=== PATIENT | male | born 1980 | race Caucasian/White ===

== ENCOUNTER 2019-03-29 13:37 | Emergency (ER) | payer SELFPAY ==
[2019-03-29 14:19] VITALS: BP 134/86; PULSE 96; RESP 18; TEMP 36.7; O2SAT 97; BMI 18.6
--- NOTE | 2019-03-29 14:36 | ED_ITS ---
HPI - Dental/Oral General: Chief complaint: Dental/Oral Stated complaint: toothache Time Seen by Provider: 03/29/19 14:31 History of Present Illness: HPI Narrative: Patient comes in seeking pain medicine for dental problems. Had a long history of dental problems MD Complaint: tooth pain (Complains of gum pain along the right side.) Location: Tooth # Teeth map: 1. 2. 3. Onset (ago): week(s) Duration: intermittent Severity: moderate Relieving factors: nothing Context: history of dental caries Associated symptoms: Denies fever(s) Review of Systems Const: Denies: fever, chills or body aches Eyes: Denies: change in vision or blurry vision ENMT: Reports: other (Dental gum pain times weeks); Denies: throat pain or nasal congestion Card: Denies: chest pain or shortness of breath on exertion Resp: Denies: shortness of breath, productive cough or non-productive cough GI: Denies: abdominal pain, nausea or vomiting : Denies: difficulty urinating Musc: Denies: extremity pain Skin/Breast: Denies: rash Neuro: Denies: headache Psych: Denies: anxiety or depression Sly/Lymph: Denies: easy bruising PFSH ED PFSH: Statuses (acute, chronic, etc) shown below reflect problem list status as previously entered and may not be historically accurate Social History Smoking and tobacco status: current every day smoker Physical Exam Const: COMMON NORMALS: no apparent distress, average body habitus and oriented x3 HENMT: COMMON NORMALS: normocephalic HEAD & SCALP: normal to inspection and normocephalic FACE & SINUS: normal facial exam MOUTH: other (Obvious gum disease no signs of abscess no swelling erythema to the face or in the jaws no lymphadenopathy.) Eye: COMMON NORMALS: conjunctivae normal GENERAL EYE: normal appearance of both eyes CONJUNCTIVA: Yes conjunctivae normal Neck/C-Spine: COMMON NORMALS: no JVD Chest: COMMONS NORMALS: inspection of chest normal Resp: COMMON NORMALS: normal respiratory effort and clear to auscultation bilaterally AUSCULTATION: clear to auscultation bilaterally Cardio: COMMON NORMALS: no JVD, regular rate and regular rhythm RATE: regular rate RHYTHM: regular rhythm GI: COMMON NORMALS: normal to inspection, nondistended, normoactive bowel sounds Extremity: COMMON NORMALS: normal to inspection and full ROM Neuro: COMMON NORMALS: oriented x3 Course Vital Signs: Vital signs: Vital Signs Temperature 98.1 F 03/29/19 14:19 Pulse Rate 96 03/29/19 14:19 Respiratory Rate 18 03/29/19 14:19 Blood Pressure 134/86 03/29/19 14:19 Pulse Oximetry 97 03/29/19 14:19 Coding Level of Care Code 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
[2019-03-29 14:47] VITALS: BP 135/83; PULSE 88; RESP 18; O2SAT 97
== END 2019-03-29 14:46 | disposition home or self-care (01) ==
LOC: ER 14:51
PROVIDERS: Emergency Provider Nurse Practitioner Family
DX: K08.89 Other specified disorders of teeth and supporting structures (principal); F17.210 Nicotine dependence, cigarettes, uncomplicated
CPT/HCPCS: 99281

== ENCOUNTER 2020-05-06 16:19 | Emergency (ER) | payer SELFPAY ==
[2020-05-06 16:50] VITALS: BP 122/71; PULSE 78; RESP 14; TEMP 36.7; O2SAT 96; BMI 23.1
[2020-05-06 17:50] VITALS: BP 117/77; PULSE 80; RESP 18; O2SAT 98
[2020-05-06] MEDS: sodium chloride 0.9% 1,000 ML 999 ML IV (18:04)
[2020-05-06] MEDS: ondansetron 2 mg/ML SDV 2 mL 4 MG IVP (18:04)
[2020-05-06] MEDS: morphine 4 mg/mL SDV 1 mL IVP ×2 (18:04→19:26)
[2020-05-06 18:12] LABS: Basophils # 0.1 10^3/uL (0.0-0.1); Basophils % 1.2 %; Eosinophils # 0.4 10^3/uL (0.0-0.8); Eosinophils % 4.9 %; Hematocrit 47.5 % (42.0-52.0); Hemoglobin 15.4 g/dL (11.7-16.6); Lymphocytes # 2.1 10^3/uL (0.8-4.8); Lymphocytes % 26.2 %; Mean Corpuscular HGB Conc 32.4 g/dL (30.0-36.0); Mean Corpuscular Hemoglobin 32.4 pg (28.0-34.0); Mean Corpuscular Volume 99.8 fL (80-94); Mean Platelet Volume 11.5 fL (7.4-10.4); Monocytes # 0.5 10^3/uL (0.2-0.9); Monocytes % 6.5 %; Neutrophils # 4.97 10^3/uL (1.8-7.7); Nucleated Red Blood Cells % 0 %; Platelet Count 183 10^3/cmm (130-400); Red Blood Count 4.76 10^6/uL (4.1-5.3); Red Cell Distribution Width 12.5 % (12.1-15.1); White Blood Count 8.2 10^3/uL (4.0-10.0)
--- NOTE | 2020-05-06 18:15 | ED_ITS ---
HPI - Male Genitourinary General: Chief complaint: Urogenital-Male Stated complaint: Kidney Pain Time Seen by Provider: 05/06/20 17:29 Source: patient Mode of arrival: ambulatory Limitations: no limitations History of Present Illness: HPI Narrative: 39-year-old male states has been having dysuria some slight flank pain over the last 3 to 4 days. He states that it is a very severe burning sensation when he urinates. He denies any blood or discharge. He denies any pain except for when he urinates. Denies any vomiting or diarrhea. Associated symptoms: Reports dysuria; Deny nausea or vomiting Review of Systems Const: Denies: fever(s), chills, body aches or change in appetite Eyes: Denies: blurry vision or eye discomfort ENMT: Denies: throat pain or dental pain Card: Denies: chest pain Resp: Denies: dyspnea GI: Denies: abdominal pain, nausea, vomiting or diarrhea : Reports: dysuria, urinary frequency and urinary urgency Musc: Denies: neck pain or back pain Skin/Breast: Denies: rash Neuro: Denies: headache(s) Psych: Denies: depression Sly/Lymph: Denies: easy bruising All/Imm: Denies: urticaria PFSH ED PFSH: Social History Smoking and tobacco status: current every day smoker Physical Exam Const: COMMON NORMALS: no acute distress, patient oriented x3 and healthy appearing HENMT: COMMON NORMALS: normocephalic and atraumatic HEAD & SCALP: normocephalic and atraumatic Eye: COMMON NORMALS: Equal, round and reactive pupils present and EOMs intact bilaterally PUPIL: Yes Equal, round and reactive pupils present Neck/C-Spine: COMMON NORMALS: full ROM and supple Chest: COMMONS NORMALS: normal inspection of the chest and normal palpation of entire chest wall Resp: COMMON NORMALS: normal respiratory effort, No retractions, No use of accessory muscles and clear to auscultation bilaterally AUSCULTATION: clear to auscultation bilaterally Cardio: COMMON NORMALS: regular rate, regular rhythm and No murmurs present (Cardio) RATE: regular rate RHYTHM: regular rhythm GI: COMMON NORMALS: Normal to inspection, nondistended, normoactive bowel sounds present, Soft to palpation, non-tender and no masses PALPATION: Yes Soft to palpation Extremity: COMMON NORMALS: normal to inspection and full ROM Neuro: COMMON NORMALS: patient oriented x3, moves all extremities and no focal motor deficits Psych: COMMON NORMALS: mental status grossly normal, Normal thought process present and cooperative THOUGHT PROCESS: Normal thought process present Skin: COMMON NORMALS: no rashes or lesions noted and no wounds GENERAL SKIN EXAM: no rashes or lesions noted Course Vital Signs: Vital signs: Vital Signs Temperature 98.1 F 05/06/20 16:50 Pulse Rate 68 05/06/20 19:29 Respiratory Rate 16 05/06/20 19:29 Blood Pressure 122/80 05/06/20 19:29 Pulse Oximetry 98 05/06/20 19:29 MDM - Male MDM Narrative: Medical decision making narrative: Patient presents here with acute cystitis. CT scan and blood work here are all normal. Will place patient on Keflex and Naprosyn. His exam at discharge is benign. He is stable for discharge and he is to return if worsening. Lab Data: Labs: Lab Results 05/06/20 05/06/20 05/06/20 Range/Units 17:30 17:30 18:42 WBC 8.2 (4.0-10.0) 10^3/ uL RBC 4.76 (4.1-5.3) 10^6/u L Hgb 15.4 (11.7-16.6) g/dL Hct 47.5 (42.0-52.0) % MCV 99.8 H (80-94) fL MCH 32.4 (28.0-34.0) pg MCHC 32.4 (30.0-36.0) g/dL RDW 12.5 (12.1-15.1) % Plt Count 183 (130-400) 10^3/c mm MPV 11.5 H (7.4-10.4) fL Neut % (Auto) 61.0 % Lymph % (Auto) 26.2 % [place] % (Auto) 6.5 % Eos % (Auto) 4.9 % Baso % (Auto) 1.2 % Neut # (Auto) 4.97 (1.8-7.7) 10^3/u L Lymph # (Auto) 2.1 (0.8-4.8) 10^3/u L [place] # (Auto) 0.5 (0.2-0.9) 10^3/u L Eos # (Auto) 0.4 (0.0-0.8) 10^3/u L Baso # (Auto) 0.1 (0.0-0.1) 10^3/u L Nucleated RBC % (a uto) 0 % Nucleated RBCs # 0.0 /100WBC Sodium 143 (136-145) mmol/L Potassium 4.2 (3.5-5.1) mmol/L Chloride 104 (98-107) mmol/L Carbon Dioxide 30 H (22-29) mmol/L Anion Gap 13.2 (5-19) BUN 14 (6-20) mg/dL Creatinine 0.7 (0.7-1.2) mg/dL GFR Calculation 124.3 (90-130) mL/min Glucose 93 (65-115) mg/dL Calculated Osmolal ity 296 H (285-295) mOsm/k g Calcium 9.3 (8.5-10.5) mg/dL Total Bilirubin 0.2 (0.15-1.2) mg/dL AST 13 (0-40) U/L ALT 13 (0-41) U/L Alkaline Phosphata se 81 (40-130) IU/L Total Protein 6.6 (6.6-8.7) g/dL Albumin 3.9 (3.5-5.2) g/dL Globulin 2.7 (1.3-4.6) g/dL Lipase 31 (13-60) U/L Urine Color Yellow (Yellow) Urine Appearance Clear (CLEAR) Urine pH 5 (5-7) Ur Specific Gravit y 1.030 (1.005-1.030) Urine Protein Trace (Negative) Urine Glucose (UA) Norm (Normal) Urine Ketones 1+ H (Negative) Urine Blood Neg (Negative) Urine Nitrate Negative (Negative) Urine Bilirubin 2+ H (Negative) Urine Urobilinogen 4+ H (Negative) mg/dL Ur Leukocyte Linette ase Trace H (Negative) Urine RBC None (0-2) /hpf Urine WBC 0-4 H (0-5) /hpf Ur Squamous Epith Cells None (0-5) /hpf Amorphous Sediment Not Reportable Urine Bacteria None (NONE) /hpf Urine Mucus 1+ /hpf Imaging Data: CT Abd/Pel: Attestation: I personally reviewed and interpreted this imaging study as follows: Radiologist's impression: [facility] [address] [place] [address] CT Scan Report Signed Patient: Demian Lucio Unit #: [id number] : 1980 Age/Sex: 39 / M ADM Date: 05/06/20 Loc: ER Room/Bed: Attending Dr: Ordering Provider/Ordering MD: Elisabet Mora MD Date of Service: 05/06/20 Procedure(s): CT abdomen pelvis w con* [id number] Accession Number(s): [id number] Report Number: [id number] PROCEDURE INFORMATION: Exam: CT Abdomen And Pelvis With Contrast Exam date and time: 05/06/2020 7:26 PM Age: 39 years old Clinical indication: Abdominal pain; Other: Bilat; Prior surgery; Surgery date: 6+ months; Surgery type: Fistula; Patient HX: C/O b flank pain and dark urine x 3-4 days; Additional info: Abd pain TECHNIQUE: Imaging protocol: Computed tomography of the abdomen and pelvis with contrast. Radiation optimization: All CT scans at this facility use at least one of these dose optimization techniques: automated exposure control; mA and/or kV adjustment per patient size (includes targeted exams where dose is matched to clinical indication); or iterative reconstruction. Contrast material: OMNI 300; Contrast volume: 95 ml; Contrast route: INTRAVENOUS (IV); COMPARISON: No relevant prior studies available. RADIATION DOSE METRICS: Total DLP (mGy-cm): 1208.6 FINDINGS: Liver: Normal. No mass. Gallbladder and bile ducts: Normal. No calcified stones. No ductal dilation. Pancreas: Normal. No ductal dilation. Spleen: Normal. No splenomegaly. Adrenal glands: Normal. No mass. Kidneys and ureters: Incidental cyst with simple CT features 9 mm diameter in the posterior lower pole cortex of the left kidney. Renal parenchymal enhancement is symmetric and unremarkable. No hydronephrosis. No perinephric inflammation. No calcified renal stones. Stomach and bowel: Unremarkable. No obstruction. No mucosal thickening. Appendix: No evidence of appendicitis. Intraperitoneal space: Unremarkable. No free air. No significant fluid collection. Vasculature: Unremarkable. No abdominal aortic aneurysm. Lymph nodes: Unremarkable. No enlarged lymph nodes. Urinary bladder: Unremarkable as visualized. Reproductive: Unremarkable as visualized. Bones/joints: Unremarkable. No acute fracture. Unremarkable alignment. Moderate severity disc height loss at L5-S1 with vacuum disc formation. Soft tissues: Unremarkable. CT/CT abdomen pelvis w con* [id number] IMPRESSION: 1. Negative for acute pathology in the abdomen or pelvis. 2. No collecting system abnormality identified. Discharge Plan Discharge Patient Disposition: Home Clinical Impression: Urinary tract infection Qualifiers: Urinary tract infection type: site unspecified Hematuria presence: without hematuria Qualified Code(s): N39.0 - Urinary tract infection, site not specified Condition: Stable Prescriptions: New Keflex 500 mg capsule 500 mg PO Q6H 7 Days Qty: 28 RF: 0 Naprosyn 500 mg tablet 500 mg PO BID PRN (Reason: pain) Qty: 20 RF: 0 No Action Tylenol 325 mg Tablet 325 mg PO QID PRN (Reason: Pain) RF: 0 Discharge Orders: Discharge ED (Routine); Ordered 05/06/20 Ordered By: Elisabet Mora Discharge Diet: Advance as tolerated Discharge Activity: Resume usual activity Patient Instructions: Urinary Tract Infection in Men (ED) Coding Level of Care Code ED Auto Top Mechanic for Chg Fwd Exam Comprehensive
[2020-05-06 18:36] LABS: Alanine Aminotransferase 13 U/L (0-41); Albumin Level 3.9 g/dL (3.5-5.2); Alkaline Phosphatase 81 IU/L (40-130); Anion Gap 13.2 (5-19); Aspartate Amino Transferase 13 U/L (0-40); Blood Urea Nitrogen 14 mg/dL (6-20); Calcium 9.3 mg/dL (8.5-10.5); Carbon Dioxide 30 mmol/L (22-29); Chloride 104 mmol/L (98-107); Globulin 2.7 g/dL (1.3-4.6); Glomerular Filtration Rate 124.3 mL/min (90-130); Glucose 93 mg/dL (65-115); Lipase 31 U/L (13-60); Osmolality Calculated 296 mOsm/kg (285-295); Potassium 4.2 mmol/L (3.5-5.1); Sodium 143 mmol/L (136-145); Total Bilirubin 0.2 mg/dL (0.15-1.2); Total Protein 6.6 g/dL (6.6-8.7)
[2020-05-06 19:09] LABS: Bilirubin Urine 2+ (Negative); Blood Urine Neg (Negative); Glucose Urine UA Norm (Normal); Ketones Urine 1+ (Negative); Nitrate Urine Negative (Negative); Protein Urine Trace (Negative); Urine Appearance Clear (CLEAR); Urine Color Yellow (Yellow); pH Urine 5 (5-7)
[2020-05-06 19:10] LABS: Add Urine Microscopic? YES; Leukocyte Esterase Urine Trace (Negative); Urobilinogen Urine 4+ mg/dL (Negative)
[2020-05-06 19:11] LABS: Add Urine Culture? No; Mucus Urine 1+ /hpf; WBC Urine 0-4 /hpf (0-5)
--- NOTE | 2020-05-06 19:16 | CTR_ITS ---
PROCEDURE INFORMATION: Exam: CT Abdomen And Pelvis With Contrast Exam date and time: 05/06/2020 7:26 PM Age: 39 years old Clinical indication: Abdominal pain; Other: Bilat; Prior surgery; Surgery date: 6+ months; Surgery type: Fistula; Patient HX: C/O b flank pain and dark urine x 3-4 days; Additional info: Abd pain TECHNIQUE: Imaging protocol: Computed tomography of the abdomen and pelvis with contrast. Radiation optimization: All CT scans at this facility use at least one of these dose optimization techniques: automated exposure control; mA and/or kV adjustment per patient size (includes targeted exams where dose is matched to clinical indication); or iterative reconstruction. Contrast material: OMNI 300; Contrast volume: 95 ml; Contrast route: INTRAVENOUS (IV); COMPARISON: No relevant prior studies available. RADIATION DOSE METRICS: Total DLP (mGy-cm): 1208.6 FINDINGS: Liver: Normal. No mass. Gallbladder and bile ducts: Normal. No calcified stones. No ductal dilation. Pancreas: Normal. No ductal dilation. Spleen: Normal. No splenomegaly. Adrenal glands: Normal. No mass. Kidneys and ureters: Incidental cyst with simple CT features 9 mm diameter in the posterior lower pole cortex of the left kidney. Renal parenchymal enhancement is symmetric and unremarkable. No hydronephrosis. No perinephric inflammation. No calcified renal stones. Stomach and bowel: Unremarkable. No obstruction. No mucosal thickening. Appendix: No evidence of appendicitis. Intraperitoneal space: Unremarkable. No free air. No significant fluid collection. Vasculature: Unremarkable. No abdominal aortic aneurysm. Lymph nodes: Unremarkable. No enlarged lymph nodes. Urinary bladder: Unremarkable as visualized. Reproductive: Unremarkable as visualized. Bones/joints: Unremarkable. No acute fracture. Unremarkable alignment. Moderate severity disc height loss at L5-S1 with vacuum disc formation. Soft tissues: Unremarkable. CT/CT abdomen pelvis w con* [id number] IMPRESSION: 1. Negative for acute pathology in the abdomen or pelvis. 2. No collecting system abnormality identified. COMMENTS: Consistent with the [employer]'s Incidental Findings Committee white paper (J Am Eloina Radiol 2018): Any incidental renal lesion less than 1 cm or classified as too small to characterize, or any incidental cystic renal lesion characterized as simple-appearing, is likely benign. No follow-up imaging is recommended for these lesions per consensus recommendations based on imaging criteria. Radiation Dose CTDIVOL = (mGy): DLP = 1208.6 (mGy-cm)
[2020-05-06 19:26] VITALS: RESP 16; O2SAT 98
[2020-05-06] MEDS: cefTRIAXone 1,000 MG in sodium chloride 0.9% (plus) 50 ML 100 MG IV (19:26)
[2020-05-06 19:29] VITALS: BP 122/80; PULSE 68; RESP 16; O2SAT 98
[2020-05-06] MEDS: iohexol 300 mg/mL 100 mL Btl IV (19:33)
[2020-05-06 20:08] VITALS: BP 121/84; PULSE 74; RESP 16; O2SAT 95
== END 2020-05-06 20:09 | disposition home or self-care (01) ==
PROVIDERS: Nurse Practitioner Family; Emergency Provider Emergency Medicine
DX: N39.0 Urinary tract infection, site not specified (principal); F17.210 Nicotine dependence, cigarettes, uncomplicated
CPT/HCPCS: 74177; 80053; 81001; 83690; 85025; 96365; 96375; 96376; 99284; J0696; J2270; J2405; J7030; Q9967

== ENCOUNTER 2020-12-06 11:14 | Emergency (ER) | payer SELFPAY ==
[2020-12-06] VITALS (10 sets, daily range): BP systolic 126–135; BP diastolic 80–98; PULSE 73–94; RESP 14–21; TEMP 36.8; O2SAT 94–100; BMI 22.4
[2020-12-06 11:42] LABS: Basophils # 0.1 10^3/uL (0.0-0.1); Basophils % 1.8 %; Eosinophils # 0.4 10^3/uL (0.0-0.8); Hematocrit 41.8 % (42.0-52.0); Hemoglobin 14.2 g/dL (11.7-16.6); Lymphocytes # 2.1 10^3/uL (0.8-4.8); Lymphocytes % 28.8 %; Mean Corpuscular Hemoglobin 32.6 pg (28.0-34.0); Mean Corpuscular Volume 95.9 fl (80-94); Mean Platelet Volume 10.8 fL (7.4-10.4); Monocytes # 0.6 10^3/uL (0.2-0.9); Neutrophils # 3.93 10^3/uL (1.8-7.7); Neutrophils % 55.1 %; Nucleated Red Blood Cells % 0 %; Platelet Count 198 10^3/cmm (130-400); Red Blood Count 4.36 10^6/uL (4.1-5.3); Red Cell Distribution Width 14.1 % (12.1-15.1); White Blood Count 7.1 10^3/uL (4.0-10.0)
--- NOTE | 2020-12-06 11:42 | ED_ITS ---
Documented by User: JESSICA Nixon 12/06/20 15:45 HPI - Abdominal Pain General: Chief Complaint: Abdominal Pain Stated Complaint: STOMACH PAINS Time Seen by Provider: 12/06/20 11:24 History of Present Illness: HPI narrative: Patient is a 40-year-old male comes to the ED with abdominal pain. Abdominal pain has been going on for approximately 2 days. He rates the pain currently an 8 out of 10 and says is located in the right upper quadrant of the abdomen. Pain is described as really sharp, stabbing pain. He also endorses having some generalized lower abdominal cramping as well. Pain worsens after he eats. Denies any emesis, diarrhea or constipation. Patient does endorse having some nausea. Denies fever, chills, bladder symptoms. Associated Symptoms: Reports nausea; Denies chills, constipation, diarrhea, dysuria, fever(s), hematochezia, hematuria and vomiting Review of Systems Const: Denies: fever(s), chills or fatigue Eyes: Denies: change in vision or eye discomfort ENMT: Denies: throat pain, odynophagia, nasal discharge or nasal congestion Card: Denies: chest pain, palpitations, edema, swelling of feet/ankles, dyspnea on exertion or orthopnea Resp: Denies: dyspnea, productive cough or non-productive cough GI: Reports: abdominal pain and nausea; Denies: vomiting, diarrhea, constipation or hematochezia : Denies: flank pain, difficulty urinating, dysuria or hematuria Musc: Denies: neck pain, back pain or extremity swelling Skin/Breast: Denies: rash or new lesions Neuro: Denies: headache(s), numbness in extremities or weakness in extremities PFSH ED PFSH: Social History Smoking and tobacco status: current every day smoker Physical Exam Const: COMMON NORMALS: patient oriented x3 and alert GENERAL APPEARANCE: cooperative and in distress (pt appears uncomfortable and in pain) HENMT: COMMON NORMALS: normocephalic HEAD & SCALP: normocephalic MOUTH: Normal oral and palatal mucosa present THROAT: posterior oropharynx normal and uvula midline Eye: COMMON NORMALS: Equal, round and reactive pupils present PUPIL: Yes Equal, round and reactive pupils present Neck/C-Spine: COMMON NORMALS: supple GENERAL: Yes normal visual inspection Resp: COMMON NORMALS: normal respiratory effort, No retractions, No use of accessory muscles and clear to auscultation bilaterally AUSCULTATION: clear to auscultation bilaterally Cardio: COMMON NORMALS: regular rate, regular rhythm, S1 normal heart sound present, S2 normal heart sound present, No gallops present (Cardio), No clicks present (Cardio), No murmurs present (Cardio) and Peripheral pulses 2+ throughout RATE: regular rate RHYTHM: regular rhythm HEART SOUNDS: S1 normal heart sound present and S2 normal heart sound present PERIPHERAL PULSES: Peripheral pulses 2+ throughout GI: COMMON NORMALS: Normal to inspection, nondistended, normoactive bowel sounds present, Soft to palpation and no masses PALPATION: Yes Soft to palpation and Yes Tenderness to palpation present (GI) Details: RUQ (positive parekh's sign) : COMMON NORMALS: Yes no CVA tenderness BLADDER/KIDNEY EXAM: Yes no CVA tenderness Back/Pelvis: COMMON NORMALS: no CVA tenderness Extremity: COMMON NORMALS: normal to inspection Neuro: COMMON NORMALS: patient oriented x3 SENSORIUM/ORIENTATION: Yes alert GAIT: Yes Normal gait present Skin: GENERAL SKIN EXAM: dry skin Course Reevaluation(s): Reevaluation #1: Patient symptoms of nausea and pain have been controlled with IV fluids, nausea meds and morphine. He is resting comfortably on exam bed and has not had any episodes of emesis since he has been here in the ED. Time: 15:00 Vital Signs: Vital signs: Vital Signs Temperature 98.2 F 12/06/20 11:35 Pulse Rate 80 12/06/20 15:41 Respiratory Rate 18 12/06/20 15:14 Blood Pressure 135/81 12/06/20 15:41 Pulse Oximetry 94 12/06/20 15:41 MDM - Abdominal Pain MDM Narrative: Medical decision making narrative: Patient is a 40-year-old male comes to the ED with right upper quadrant abdominal pain. Vitals are stable. Patient has right upper quadrant abdominal tenderness with positive Parekh sign. Labs were unremarkable, lipase and T bili all normal. Ultrasound of the gallbladder was nonacute but did notice some pancreatic ductal dilation and recommended a CT of the abdomen. CT the abdomen showed stable nonspecific pancreatic ductal dilation and some mild intra and extrahepatic biliary ductal dilation but no stones or sludge identified. I went over CT report with Dr. Richards and he contacted the radiologist to discuss findings. They determined the findings were nonacute and patient could do an outpatient MRCP if needed as long as he gets close follow-up. I put an order with case management for patient to be referred to Dr. Olmedo and he has an appointment with his nurse practitioner on December 11 at 10 AM. I also sent patient home with outpatient lab order to check CBC and CMP in 2 days and send lab results to Dr. Olmedo's office. Patient symptoms improved after IV fluids, nausea meds and pain meds. Pain was controlled and no episodes of emesis while here in the ED. He was stable for discharge home and diagnosed with biliary colic. He was given the follow-up instructions as I stated above. He was sent home with a prescription for Reglan and hydrocodone for pain. Return to ED precautions given. Patient understood and agreed with plan. Lab Data: Attestation: I reviewed the patient's lab results. Labs: Lab Results 12/06/20 12/06/20 12/06/20 11:27 11:27 11:59 WBC 7.1 10^3/uL 10^3/ uL (4.0-10.0) RBC 4.36 10^6/uL 10^6 /uL (4.1-5.3) Hgb 14.2 g/dL g/dL (11.7-16.6) Hct 41.8 % L % (42.0-52.0) MCV 95.9 fl H fl (80-94) MCH 32.6 pg pg (28.0-34.0) MCHC 34.0 g/dL g/dL (30.0-36.0) RDW 14.1 % % (12.1-15.1) Plt Count 198 10^3/cmm 10^3 /cmm (130-400) MPV 10.8 fL H fL (7.4-10.4) Neut % (Auto) 55.1 % % Lymph % (Auto) 28.8 % % Lea % (Auto) 8.0 % % Eos % (Auto) 6.0 % % Baso % (Auto) 1.8 % % Neut # (Auto) 3.93 10^3/uL 10^3 /uL (1.8-7.7) Lymph # (Auto) 2.1 10^3/uL 10^3/ uL (0.8-4.8) Lea # (Auto) 0.6 10^3/uL 10^3/ uL (0.2-0.9) Eos # (Auto) 0.4 10^3/uL 10^3/ uL (0.0-0.8) Baso # (Auto) 0.1 10^3/uL 10^3/ uL (0.0-0.1) Nucleated RBC % (a uto) 0 % % Nucleated RBCs # 0.0 /100WBC /100W BC Sodium 141 mmol/L mmol/L (136-145) Potassium 4.2 mmol/L mmol/L (3.5-5.1) Chloride 105 mmol/L mmol/L (98-107) Carbon Dioxide 24 mmol/L mmol/L (22-29) Anion Gap 16.2 (5-19) BUN 16 mg/dL mg/dL (6-20) Creatinine 0.9 mg/dL mg/dL (0.7-1.2) GFR Calculation 92.5 mL/min mL/mi n (90-130) Glucose 108 mg/dL mg/dL (65-115) Calculated Osmolal ity 294 mOsm/kg mOsm/ kg (285-295) Calcium 8.8 mg/dL mg/dL (8.5-10.5) Total Bilirubin 0.4 mg/dL mg/dL (0.15-1.2) AST 15 U/L U/L (0-40) ALT 13 U/L U/L (0-41) Alkaline Phosphata se 65 IU/L IU/L (40-130) Total Protein 6.2 g/dL L g/dL (6.6-8.7) Albumin 3.8 g/dL g/dL (3.5-5.2) Globulin 2.4 g/dL g/dL (1.3-4.6) Lipase 21 U/L U/L (13-60) Urine Color Straw (Yellow) Urine Appearance Clear (CLEAR) Urine pH 7 (5-7) Ur Specific Gravit y 1.010 (1.005-1.030) Urine Protein Neg (Negative) Urine Glucose (UA) Norm (Normal) Urine Ketones Negative (Negative) Urine Blood Neg (Negative) Urine Nitrate Negative (Negative) Urine Bilirubin Neg (Negative) Urine Urobilinogen Norm mg/dL mg/dL (Negative) Ur Leukocyte Linette ase Negative (Negative) Imaging Data ^: US: Attestation: I personally reviewed and interpreted this imaging study as follows: Radiologist's impression: [employer] [place] [address] Ultrasound Report Signed Patient: AL Lucio Unit #: [id number] : 1980 Age/Sex: 40 / M ADM Date: 12/06/20 Loc: ER Room/Bed: Attending Dr: Ordering Provider/Ordering MD: Rell Crowe Date of Service: 12/06/20 Procedure(s): US gall bladder [id number] Accession Number(s): [id number] Report Number: [id number] WS: [id number] ULTRASOUND ABDOMEN LIMITED CLINICAL INFORMATION: RUQ abdominal pain with nausea COMPARISON: None. FINDINGS: Liver Size: Enlarged Craniocaudal length: 18.0 cm. Echogenicity: Coarse with diffuse fatty infiltration Surface nodularity: None. Mass (size and location): None. Bile ducts Intrahepatic ducts: Normal. Common bile duct diameter: 0.6 cm. Gallbladder Normal. Gallstones: None. Gallbladder sludge: None. Gallbladder wall thickening: None. Pericholecystic fluid: None. Sonographic Parekh sign: Absent. Pancreas Dilated pancreatic duct in the head of the pancreas similar to CT May 06, 2020 Right kidney: Normal. Hydronephrosis: None. Size: 10.0 cm x 6.1 cm x 4.4 cm. Abdominal aorta and IVC Visualized portions are normal. Ascites: None. US/US gall bladder [id number] IMPRESSION: 1. Hepatomegaly with diffuse fatty infiltration 2. Normal gallbladder. Normal common bile duct. 3. No hydronephrosis in right kidney. 4. Dilated pancreatic duct in the head of the pancreas similar to CT May 06, 2020. This can be followed up with CT abdomen pelvis Dictated By: Cecilio Baez MD Signed By: Cecilio Baez MD Signed Date/Time: 12/06/20 1251 DD/ 1231 CT Abd/Pel: Attestation: I personally reviewed and interpreted this imaging study as follows: Radiologist's impression[facility] [address] [address] CT Scan Report Signed Patient: AL Lucio Unit #: [id number] : 1980 Age/Sex: 40 / M ADM Date: 12/06/20 Loc: ER Room/Bed: Attending Dr: Ordering Provider/Ordering MD: Rell Crowe Date of Service: 12/06/20 Procedure(s): CT abdomen pelvis w con* [id number] Accession Number(s): [id number] Report Number: [id number] PROCEDURE INFORMATION: Exam: CT Abdomen And Pelvis With Contrast Exam date and time: 12/06/2020 12:57 PM Age: 40 years old Clinical indication: Abdominal pain; Flank; Right; Additional info: Abdominal pain, nausea TECHNIQUE: Imaging protocol: Computed tomography of the abdomen and pelvis with contrast. Radiation optimization: All CT scans at this facility use at least one of these dose optimization techniques: automated exposure control; mA and/or kV adjustment per patient size (includes targeted exams where dose is matched to clinical indication); or iterative reconstruction. Contrast material: OMNI 300; Contrast volume: 95 ml; Contrast route: INTRAVENOUS (IV); COMPARISON: CT abdomen pelvis w con* [id number] 05/06/2020 7:46 PM RADIATION DOSE METRICS: Total DLP (mGy-cm): 1083.56 FINDINGS: Liver: Mild central intrahepatic biliary ductal dilatation. Gallbladder and bile ducts: The gallbladder is partially contracted. No extrahepatic biliary ductal dilatation or calculus. The extrahepatic bile ducts are mildly dilated, measuring 7.8 mm. Pancreas: Mild prominence of the pancreatic duct in the pancreatic head and neck, maximally measuring 5 mm. No pancreatic mass or calcification identified. Spleen: Normal. No splenomegaly. Adrenal glands: Normal. No mass. Kidneys and ureters: Left renal benign 9.9 mm angiomyolipoma (-18 Hounsfield units), stable. Stomach and bowel: Unremarkable. No obstruction. No mucosal thickening. Appendix: The vermiform appendix is normal. Intraperitoneal space: No free air. No significant fluid collection. Vasculature: A circumaortic left renal vein is present. Moderate aortic atherosclerotic calcification without aneurysm. The iliac arteries show moderate bilateral atherosclerotic calcifications without evidence of aneurysm. Lymph nodes: No enlarged lymph nodes. Urinary bladder: Unremarkable as visualized. Reproductive: Unremarkable as visualized. Bones/joints: Left lower lumbar facet primary osteoarthritis. Mild L4-L5 and L5-S1 retrolisthesis. Moderate L5-S1 spondylosis. Soft tissues: Unremarkable. CT/CT abdomen pelvis w con* [id number] IMPRESSION: 1. Interval increase in intrahepatic and extrahepatic biliary ductal dilatation, etiology indeterminate. MRCP may be helpful if indicated. 2. Stable nonspecific pancreatic ductal dilatation. 3. Left renal small benign angiomyolipoma, stable. Radiation Dose CTDIVOL = (mGy): DLP = 1083.56 (mGy-cm) Dictated By: Paulo Petersen MD Signed By: Paulo Petersen MD Signed Date/Time: 12/06/20 1448 DD/ 1257 Discharge Plan Discharge Patient Disposition: Home Clinical Impression: Biliary colic Condition: Stable Prescriptions: New Reglan 10 mg tablet 10 mg PO Q6H PRN (Reason: nausea and vomiting) Qty: 30 RF: 0 No Action No Known Home Medications RF: 0 Discharge Orders: Discharge ED (Routine); Ordered 12/06/20 Ordered By: Rell Crowe Referrals: Mimi Ramsay APRN [Nurse Practitioner] - 12/11/20 10:00 am Discharge Diet: Advance as tolerated and Clear Liquid Discharge Activity: Increase activity as tolerated Patient Instructions: Biliary Colic (ED), Opioid Safety Activity Restrictions/Additional Instructions: Follow-up with medical provider as directed. You have an appointment with Rey Ramsay the nurse practitioner at Dr. Olmedo's office on December 11 at 10 AM. I am also giving you an order to have labs drawn in 2 days to check liver function. Take medications as prescribed. Clear liquid diet for the next 24 to 48 hours then slowly advance diet as tolerated. Return to the ER or your medical provider if condition worsens. Please read and understand discharge instructions. Thank you for choosing [facility] for your healthcare needs today. Please realize this is an emergency room and that we are providing you with a medical screening exam and this may not be complete and all inclusive of all the testing and or work up that you may need to determine your ailment or severity of your illness. It is very important that you follow up as instructed or that you return to the Emergency Department should you have concerns or if your condition changes or worsens in any way. Coding Level of Care Code ED Theater Technician for Chg Fwd Exam Comprehensive Documented by User: Jairo Richards DO 12/06/20 16:04 HPI - Abdominal Pain General: Chief Complaint: Abdominal Pain Stated Complaint: STOMACH PAINS Time Seen by Provider: 12/06/20 11:24 PFSH ED PFSH: Social History Smoking and tobacco status: current every day smoker Course Vital Signs: Vital signs: Vital Signs Temperature 98.2 F 12/06/20 11:35 Pulse Rate 80 12/06/20 15:41 Respiratory Rate 18 12/06/20 15:14 Blood Pressure 135/81 12/06/20 15:41 Pulse Oximetry 94 12/06/20 15:41 MDM - Abdominal Pain MDM Narrative: Medical decision making narrative: Reviewed case with JESSICA Nixon. Also discussed Dr. Baez given the findings of the CT and the ultrasound. In reviewing the chart and the labs and discussing Nestor, we agreed at this time the patient does not need emergent ERCP or MRCP. Patient can have follow-up within the next day or 2 to have repeat transaminases and T bili. If they are elevating further a nonemergent MRCP can be completed. Patient was advised to return if he has any worsening problems. Lab Data: Labs: Lab Results 12/06/20 12/06/20 12/06/20 11:27 11:27 11:59 WBC 7.1 10^3/uL 10^3/ uL (4.0-10.0) RBC 4.36 10^6/uL 10^6 /uL (4.1-5.3) Hgb 14.2 g/dL g/dL (11.7-16.6) Hct 41.8 % L % (42.0-52.0) MCV 95.9 fl H fl (80-94) MCH 32.6 pg pg (28.0-34.0) MCHC 34.0 g/dL g/dL (30.0-36.0) RDW 14.1 % % (12.1-15.1) Plt Count 198 10^3/cmm 10^3 /cmm (130-400) MPV 10.8 fL H fL (7.4-10.4) Neut % (Auto) 55.1 % % Lymph % (Auto) 28.8 % % Lea % (Auto) 8.0 % % Eos % (Auto) 6.0 % % Baso % (Auto) 1.8 % % Neut # (Auto) 3.93 10^3/uL 10^3 /uL (1.8-7.7) Lymph # (Auto) 2.1 10^3/uL 10^3/ uL (0.8-4.8) Lea # (Auto) 0.6 10^3/uL 10^3/ uL (0.2-0.9) Eos # (Auto) 0.4 10^3/uL 10^3/ uL (0.0-0.8) Baso # (Auto) 0.1 10^3/uL 10^3/ uL (0.0-0.1) Nucleated RBC % (a uto) 0 % % Nucleated RBCs # 0.0 /100WBC /100W BC Sodium 141 mmol/L mmol/L (136-145) Potassium 4.2 mmol/L mmol/L (3.5-5.1) Chloride 105 mmol/L mmol/L (98-107) Carbon Dioxide 24 mmol/L mmol/L (22-29) Anion Gap 16.2 (5-19) BUN 16 mg/dL mg/dL (6-20) Creatinine 0.9 mg/dL mg/dL (0.7-1.2) GFR Calculation 92.5 mL/min mL/mi n (90-130) Glucose 108 mg/dL mg/dL (65-115) Calculated Osmolal ity 294 mOsm/kg mOsm/ kg (285-295) Calcium 8.8 mg/dL mg/dL (8.5-10.5) Total Bilirubin 0.4 mg/dL mg/dL (0.15-1.2) AST 15 U/L U/L (0-40) ALT 13 U/L U/L (0-41) Alkaline Phosphata se 65 IU/L IU/L (40-130) Total Protein 6.2 g/dL L g/dL (6.6-8.7) Albumin 3.8 g/dL g/dL (3.5-5.2) Globulin 2.4 g/dL g/dL (1.3-4.6) Lipase 21 U/L U/L (13-60) Urine Color Straw (Yellow) Urine Appearance Clear (CLEAR) Urine pH 7 (5-7) Ur Specific Gravit y 1.010 (1.005-1.030) Urine Protein Neg (Negative) Urine Glucose (UA) Norm (Normal) Urine Ketones Negative (Negative) Urine Blood Neg (Negative) Urine Nitrate Negative (Negative) Urine Bilirubin Neg (Negative) Urine Urobilinogen Norm mg/dL mg/dL (Negative) Ur Leukocyte Linette ase Negative (Negative) Discharge Plan Discharge Patient Disposition: Home Clinical Impression: Biliary colic Condition: Stable Prescriptions: New Reglan 10 mg tablet 10 mg PO Q6H PRN (Reason: nausea and vomiting) Qty: 30 RF: 0 No Action No Known Home Medications RF: 0 Discharge Orders: Discharge ED (Routine); Ordered 12/06/20 Ordered By: Rell Crowe Referrals: Mimi Ramsay APRN [Nurse Practitioner] - 12/11/20 10:00 am Discharge Diet: Advance as tolerated and Clear Liquid Discharge Activity: Increase activity as tolerated Patient Instructions: Biliary Colic (ED), Opioid Safety Activity Restrictions/Additional Instructions: Follow-up with medical provider as directed. You have an appointment with Mimi Ramsay the nurse practitioner at Dr. Olmedo's office on December 11 at 10 AM. I am also giving you an order to have labs drawn in 2 days to check liver function. Take medications as prescribed. Clear liquid diet for the next 24 to 48 hours then slowly advance diet as tolerated. Return to the ER or your medical provider if condition worsens. Please read and understand discharge instructions. Thank you for choosing [facility] for your healthcare needs today. Please realize this is an emergency room and that we are providing you with a medical screening exam and this may not be complete and all inclusive of all the testing and or work up that you may need to determine your ailment or severity of your illness. It is very important that you follow up as instructed or that you return to the Emergency Department should you have concerns or if your condition changes or worsens in any way. Coding Level of Care Code ED Theater Technician for Coy Fwcourtney Exam Comprehensive
--- NOTE | 2020-12-06 11:47 | US_ITS ---
WS: [id number] ULTRASOUND ABDOMEN LIMITED CLINICAL INFORMATION: RUQ abdominal pain with nausea COMPARISON: None. FINDINGS: Liver Size: Enlarged Craniocaudal length: 18.0 cm. Echogenicity: Coarse with diffuse fatty infiltration Surface nodularity: None. Mass (size and location): None. Bile ducts Intrahepatic ducts: Normal. Common bile duct diameter: 0.6 cm. Gallbladder Normal. Gallstones: None. Gallbladder sludge: None. Gallbladder wall thickening: None. Pericholecystic fluid: None. Sonographic Parekh sign: Absent. Pancreas Dilated pancreatic duct in the head of the pancreas similar to CT May 06, 2020 Right kidney: Normal. Hydronephrosis: None. Size: 10.0 cm x 6.1 cm x 4.4 cm. Abdominal aorta and IVC Visualized portions are normal. Ascites: None. US/US gall bladder [id number] IMPRESSION: 1. Hepatomegaly with diffuse fatty infiltration 2. Normal gallbladder. Normal common bile duct. 3. No hydronephrosis in right kidney. 4. Dilated pancreatic duct in the head of the pancreas similar to CT May 06, 2020. This can be followed up with CT abdomen pelvis
[2020-12-06 12:01] LABS: Alanine Aminotransferase 13 U/L (0-41); Albumin Level 3.8 g/dL (3.5-5.2); Alkaline Phosphatase 65 IU/L (40-130); Anion Gap 16.2 (5-19); Aspartate Amino Transferase 15 U/L (0-40); Blood Urea Nitrogen 16 mg/dL (6-20); Calcium 8.8 mg/dL (8.5-10.5); Carbon Dioxide 24 mmol/L (22-29); Chloride 105 mmol/L (98-107); Globulin 2.4 g/dL (1.3-4.6); Glomerular Filtration Rate 92.5 mL/min (90-130); Glucose 108 mg/dL (65-115); Lipase 21 U/L (13-60); Osmolality Calculated 294 mOsm/kg (285-295); Potassium 4.2 mmol/L (3.5-5.1); Sodium 141 mmol/L (136-145); Total Bilirubin 0.4 mg/dL (0.15-1.2); Total Protein 6.2 g/dL (6.6-8.7)
[2020-12-06] MEDS: ondansetron 2 mg/ML SDV 2 mL 4 MG IVP (12:05)
[2020-12-06 12:07] LABS: Add Urine Microscopic? NO; Charge for UA Resulting for Rev
[2020-12-06] MEDS: morphine 4 mg/mL SDV 1 mL IVP ×2 (12:09→13:04)
[2020-12-06] MEDS: sodium chloride 0.9% 1,000 ML 999 ML IV (12:09)
[2020-12-06 12:14] LABS: Bilirubin Urine Neg (Negative); Blood Urine Neg (Negative); Glucose Urine UA Norm (Normal); Ketones Urine Negative (Negative); Leukocyte Esterase Urine Negative (Negative); Nitrate Urine Negative (Negative); Protein Urine Neg (Negative); Urine Appearance Clear (CLEAR); Urine Color Straw (Yellow); Urobilinogen Urine Norm (Negative); pH Urine 7 (5-7)
--- NOTE | 2020-12-06 12:44 | ECG_ITS ---
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
--- NOTE | 2020-12-06 12:57 | CTR_ITS ---
PROCEDURE INFORMATION: Exam: CT Abdomen And Pelvis With Contrast Exam date and time: 12/06/2020 12:57 PM Age: 40 years old Clinical indication: Abdominal pain; Flank; Right; Additional info: Abdominal pain, nausea TECHNIQUE: Imaging protocol: Computed tomography of the abdomen and pelvis with contrast. Radiation optimization: All CT scans at this facility use at least one of these dose optimization techniques: automated exposure control; mA and/or kV adjustment per patient size (includes targeted exams where dose is matched to clinical indication); or iterative reconstruction. Contrast material: OMNI 300; Contrast volume: 95 ml; Contrast route: INTRAVENOUS (IV); COMPARISON: CT abdomen pelvis w con* [id number] 05/06/2020 7:46 PM RADIATION DOSE METRICS: Total DLP (mGy-cm): 1083.56 FINDINGS: Liver: Mild central intrahepatic biliary ductal dilatation. Gallbladder and bile ducts: The gallbladder is partially contracted. No extrahepatic biliary ductal dilatation or calculus. The extrahepatic bile ducts are mildly dilated, measuring 7.8 mm. Pancreas: Mild prominence of the pancreatic duct in the pancreatic head and neck, maximally measuring 5 mm. No pancreatic mass or calcification identified. Spleen: Normal. No splenomegaly. Adrenal glands: Normal. No mass. Kidneys and ureters: Left renal benign 9.9 mm angiomyolipoma (-18 Hounsfield units), stable. Stomach and bowel: Unremarkable. No obstruction. No mucosal thickening. Appendix: The vermiform appendix is normal. Intraperitoneal space: No free air. No significant fluid collection. Vasculature: A circumaortic left renal vein is present. Moderate aortic atherosclerotic calcification without aneurysm. The iliac arteries show moderate bilateral atherosclerotic calcifications without evidence of aneurysm. Lymph nodes: No enlarged lymph nodes. Urinary bladder: Unremarkable as visualized. Reproductive: Unremarkable as visualized. Bones/joints: Left lower lumbar facet primary osteoarthritis. Mild L4-L5 and L5-S1 retrolisthesis. Moderate L5-S1 spondylosis. Soft tissues: Unremarkable. CT/CT abdomen pelvis w con* [id number] IMPRESSION: 1. Interval increase in intrahepatic and extrahepatic biliary ductal dilatation, etiology indeterminate. MRCP may be helpful if indicated. 2. Stable nonspecific pancreatic ductal dilatation. 3. Left renal small benign angiomyolipoma, stable. Radiation Dose CTDIVOL = (mGy): DLP = 1083.56 (mGy-cm)
[2020-12-06] MEDS: iohexol 300 mg/mL 100 mL Btl IV (13:53)
[2020-12-06] MEDS: HYDROmorphone 1 mg/mL INJ 1 mL 0.5 MG IVP (15:14)
--- NOTE | 2020-12-06 15:16 | DCPLANNER ---
teaching manager was asked to schedule a follow up appointment for patient with Dr. Bloom office. teaching manager called the office of Dr. Olmedo, spoke with Lillie, gave clinic patients information. A follow up appointment was scheduled for patient for Friday, December 11, 2020 at 10:00 with OPTOMETRY ASSISTANT, Francois Ramsay. teaching manager informed the ER physician, and patient of the scheduled appointment.
--- NOTE | 2020-12-28 08:10 | DCPLANNER ---
Patient had a follow up appointment scheduled for 12.11.20 with Yoly Ramsay at [facility] for pcp - patient did attend appointment.
== END 2020-12-06 15:42 | disposition home or self-care (01) ==
PROVIDERS: Emergency Provider Physician Assistant
DX: K80.50 Calculus of bile duct without cholangitis or cholecystitis without obstruction (principal); F17.210 Nicotine dependence, cigarettes, uncomplicated
CPT/HCPCS: 74177; 76705; 80053; 81003; 83690; 85025; 87040; 93005; 96361; 96374; 96375; 96376; 99284; J1170; J2270; J2405; J7030; Q9967

== ENCOUNTER → 2020-12-11 11:57 | Outpatient (BNVA) | payer SELFPAY | PROVIDERS: Visit Provider Nurse Practitioner Family | DX: K92.1 Melena (principal); K83.8 Other specified diseases of biliary tract; R63.4 Abnormal weight loss; Z87.19 Personal history of other diseases of the digestive system; K61.1 Rectal abscess; Z12.11 Encounter for screening for malignant neoplasm of colon; Z85.038 Personal history of other malignant neoplasm of large intestine | CPT/HCPCS: 80053; 87522 ==

== ENCOUNTER → 2020-12-20 15:24 | Outpatient (BNVA) | payer OTHER, SELFPAY | PROVIDERS: Visit Provider Internal Medicine | DX: Z20.822 Contact with and (suspected) exposure to COVID-19 (principal); Z01.812 Encounter for preprocedural laboratory examination | CPT/HCPCS: 87635 ==

== ENCOUNTER 2020-12-25 07:52 | Day surgery (SDC) | payer SELFPAY ==
--- NOTE | 2020-12-25 07:45 | P.HP_ITS ---
Same Day Surgery H&P Indication for Procedure/HPI DATE OF PROCEDURE: December 25, 2020 CHIEF COMPLAINT/INDICATIONFOR SURGICAL PROCEDURE: Abdominal pain PREOP DIAGNOSIS: ab pain PLANNED PROCEDRUE: Operation Date: 12/25/20 08:15 Proposed Procedures p EGD/Colon 98704 Z85.038(Not Applicable) - Miguelito Olmedo MD s Colonoscopy 17014 Z12.11(Not Applicable) - Miguelito Olmedo MD Medications/Allergies* Allergies/Adverse Reactions Allergy/AdvReac Type Severity Reaction Status Date / Time codeine Allergy Unknown Verified 12/11/20 10:10 Pertinent History/Comorbid Conditions* Social History Smoking and tobacco status: current every day smoker Pertinent Exam Findings alert, oriented x 3, clear to auscultation bilaterally, regular rate & rhythm, operative site marked and procedure specific exam findings Recommendations Surgery/Procedure today Coding Level of Care Code Acute Engineering Faculty Member for Coy Joseph
--- NOTE | 2020-12-25 08:04 | ANES.PREANE2 ---
Pre-Anesthetic Assessment Pre-Anesthetic Assessment: Height/Weight: Height 1.88 m Preop Diagnosis: ab pain Proposed Procedure: Operation Date: 12/25/20 08:15 Proposed Procedures p EGD/Colon 52862 Z85.038(Not Applicable) - Miguelito Olmedo MD s Colonoscopy 97163 Z12.11(Not Applicable) - Miguelito Olmedo MD Familial anesthetic complications: None Was Beta Arnie taken within 24 hours: N/A Was Clonidine taken within 24 hours: N/A Last intake: > 8 hrs Social: Social History: Tobacco and No alcohol Exam: Pre-Anes Outpt Exam: alert, oriented x 3, clear to auscultation bilaterally and regular rate & rhythm Airway: Cervical ROM: WNL MP: 1 Dentition: Loose and Other ( I have bad teeth - let's leave it at that ) : Comments: states his kidneys are iffy and hurt all the time - this was treated 10 years ago in [place]. Unable to provide more details and recent Scr has been normal Anesthetic Plan: ASA status: 2 Risk of > 500 ml blood loss (7ml/kg in children): No PFSH Anesthesia PFSH: Social History Smoking and tobacco status: current every day smoker Data Anesthesia Cardiac Studies: No Data to Display
[2020-12-25 08:45] VITALS: BP 145/80; PULSE 80; RESP 18; TEMP 36.1; O2SAT 99
[2020-12-25 08:51] VITALS: BMI 20.5
[2020-12-25] MEDS: sodium chloride 0.9% 1,000 ML 30 ML IV (09:17)
[2020-12-25 10:49] VITALS: BP 111/69; PULSE 76; RESP 16; O2SAT 99
[2020-12-25 11:01] VITALS: BP 110/70; PULSE 68; RESP 16; O2SAT 97
--- NOTE | 2020-12-25 11:14 | PC.NURSE ---
Pt states abdominal pain is consistent, and no worse, with pain he was experiencing prior to procedure, abdomen tender, pt has passed gas.
--- NOTE | 2020-12-25 13:43 | ANE.PACU2 ---
Inpatient post-anesthesia follow up: Airway intact: Yes Vital signs: Temperature 96.9 F Pulse Rate 68 Respiratory Rate 16 Blood Pressure 110/70 Pulse Oximetry 97 Oxygen Delivery Me thod Room Air Oxygen Flow Rate 3 Fraction of Inspir ed Oxygen Hydration adequate: Yes Nausea and vomiting: No Pain level: 1 Mental status: Baseline
[2020-12-26 05:45] LABS: H. Pylori / CLO Test Negative
== END 2020-12-25 11:50 | disposition home or self-care (01) ==
PROVIDERS: Visit Provider Internal Medicine
PROC: 0DJ08ZZ Inspection of Upper Intestinal Tract, Via Natural or Artificial Opening Endoscopic (ICD-10-PCS; CPT 43235; principal; 2020-12-25 08:15)
PROC: 0DJD8ZZ Inspection of Lower Intestinal Tract, Via Natural or Artificial Opening Endoscopic (ICD-10-PCS; CPT 45378; 2020-12-25 08:15)
DX: K92.1 Melena (principal); R10.9 Unspecified abdominal pain; K29.50 Unspecified chronic gastritis without bleeding; F17.200 Nicotine dependence, unspecified, uncomplicated
CPT/HCPCS: 43239; 45378; 87077; 96360; 96361; J2704; J7030

== ENCOUNTER 2021-02-07 09:12 | Outpatient (CLI) | payer SELFPAY ==
--- NOTE | 2021-02-07 09:30 | MR_ITS ---
WS: [id number] MRCP (MAGNETIC RESONANCE CHOLANGIOPANCREATOGRAPHY) HISTORY: Dilation of intrahepatic bile duct and extrahepatic bile duct COMPARISON: CT 12/06/2020, 04/18 and ultrasound gallbladder 12/06/2020. TECHNIQUE: Multiple sequences are performed to evaluate the intra and extrahepatic ducts. There is mild intrahepatic and extra hepatic duct dilatation noted. The common bile duct is dilated t hroughout its course measuring 11 mm. There is tapering at the ampulla of Vater. The pancreatic duct is also evident and slightly dilated throughout its course measuring up to 3.5 mm. No stone or fillin g defect is identified distally. No filling defect within the adjacent duodenum. Gallbladder is chloe lly distended. Visualized liver is negative. There is no ascites or adenopathy identified. No abnormality at the le creatic head. MR/MR MRCP [id number] IMPRESSION: 1. Progressive mild dilatation of the intrahepatic and extrahepatic ducts and pancreatic duct since 05/06/2020. No intraluminal filling defect. No mass or sto ne identified causing the obstruction. Cannot exclude an ampulla of Vater stric ture. Consider ERCP for further evaluation. 2. No ascites. No pancreatic head mass.
== END 2021-02-07 09:13 | disposition home or self-care (01) ==
LOC: RADSHAW 09:18
PROVIDERS: Visit Provider Nurse Practitioner Family
DX: K83.8 Other specified diseases of biliary tract (principal)
CPT/HCPCS: 74181

== ENCOUNTER → 2021-02-15 15:14 | Outpatient (BNVA) | payer SELFPAY | PROVIDERS: Visit Provider Nurse Practitioner Family | DX: R10.11 Right upper quadrant pain (principal) | CPT/HCPCS: 80053; 83690 ==

== ENCOUNTER 2021-03-17 07:55 | Emergency (ER) | payer SELFPAY ==
[2021-03-17] VITALS (8 sets, daily range): BP systolic 114–121; BP diastolic 76–82; PULSE 74–88; RESP 16–22; TEMP 36.5; O2SAT 96–99; BMI 20.5
--- NOTE | 2021-03-17 09:33 | W.ED.ABDPA2 ---
HPI - Abdominal Pain General: Chief Complaint: Abdominal Pain Stated Complaint: pain in ABD area Pt states pancreas Time Seen by Provider: 03/17/21 09:32 History of Present Illness: Mr Lucio is a 40-year-old gentleman with significant recent medical history of abdominal pain who presents emergency department due to worsening abdominal pain. Symptoms first began in November 2020 primarily generalized in the epigastric region. The patient has subsequently been evaluated and found to have concern regarding possible ampulla of Vater or other pathology. He is supposed to have ERCP however due to insurance he has not been able to get this done. He presents today due to worsening symptoms. Pain at baseline is mild and generally constant with occasional increase to moderate intensity. However the pain last night woke him up from sleep and has been moderate to severe. He notes associated nausea and diarrhea which has been ongoing. He has not had vomiting. He otherwise denies signs of systemic illness. Symptoms are worse with movement but do not go with rest. No other changes in health, exacerbating, relieving factors identified. He has tried medication at home without significant improvement. He reports that this feels different in location compared to prior as the location is more right mid quadrant pinpoint. Denies testicular pain or genital concerns. Pertinent past history: other Onset (ago): hour(s) Pain Consistency: constant Location: RUQ Severity: severe Exacerbating factors: movement Relieving factors: nothing Context: other Associated Symptoms: Reports diarrhea and nausea Review of Systems General: Reports: 10 or more systems reviewed and unremarkable except in HPI and below GI: Reports: nausea and diarrhea [facility] ED PFSH: Medical History No significant past medical history Surgical History No significant past surgical history Social History Smoking and tobacco status: current every day smoker Physical Exam Const: COMMON NORMALS: alert GENERAL APPEARANCE: cooperative, well developed and in distress (Pain) HENMT: COMMON NORMALS: normocephalic and atraumatic HEAD & SCALP: normocephalic and atraumatic THROAT: posterior oropharynx normal Eye: COMMON NORMALS: conjunctivae normal CONJUNCTIVA: Yes conjunctivae normal SCLERA: sclerae normal Neck/C-Spine: COMMON NORMALS: supple GENERAL: Yes trachea midline Resp: COMMON NORMALS: normal respiratory effort EFFORT & INSPECTION: Yes able to speak in complete sentences Cardio: COMMON NORMALS: regular rate and regular rhythm RATE: regular rate RHYTHM: regular rhythm GI: COMMON NORMALS: Soft to palpation PALPATION: Yes Soft to palpation, Yes Tenderness to palpation present (GI), Yes Guarding due to palpation present (GI), No Rigid due to palpation and No Rebound tenderness present (No evidence of remote peritonitis) PERCUSSION: normal to percussion Extremity: GENERAL: Yes normal exam except as noted and No edema Neuro: COMMON NORMALS: moves all extremities SENSORIUM/ORIENTATION: Yes alert and No Orientation impaired Psych: COMMON NORMALS: mental status grossly normal and Normal thought process present THOUGHT PROCESS: Normal thought process present Course ED course: - Patient was seen and evaluated by me at bedside - Patient placed on cardiac monitors, IV access obtained - Initial evaluation notable for exam as above -Fluids, antiemetic, analgesia ordered - Labs notable for minimal leukocytosis. Mild evidence of dehydration. Lipase normal. Urinalysis not concerning for urinary tract infection. - Given severity of symptoms and new characteristic repeat CT imaging felt to be warranted. Imaging notable for no acute finding to explain patient's symptoms - Upon serial reexamination after treatment the patient was mildly improved. Additional treatments ordered - Based on patient history, evaluation, labs, and imaging as interpreted the most likely cause of the patient's condition is unspecified abdominal pain which may be related to patient's suspected ampulla of vater dysfunction - The results of ED evaluation were discussed with the patient including prescriptions and/or symptomatic cares (if applicable) including appropriate and responsible use, followup plan, and return precautions. The patient verbalized understanding and felt safe for discharge. - Patient discharged in satisfactory condition. Note: Click bubbles or prepopulated aburto in note writing are used for assistance with data collection and billing and are inherently more limited than narrative and other text portions of this note. Please use narrative for additional clinical history and defer to narrative/free test for any case of contradictory information. If information appears in only free text or click bubble it should be considered present or absent as reported. Please contact note commercial lines underwriter for clarifications of clinical information or contradictory information. MDM is a brief summary, contradictory or erroneous seeming information should be clarified and full note should be reviewed. 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 This pain is different in location compared to prior. ED evaluation with mild evidence of dehydration, no acute finding on CT scan to explain continued symptoms. I suspect that this is related to chronic abdominal pain requiring further outpatient evaluation. Patient has been referred for ERCP however this is pending at this time due to difficulty with insurance. Medical Records I reviewed the patient's medical records. Lab Data I reviewed the patient's lab results. : 03/17/21 10:04 03/17/21 10:04 Labs/Radiology: Radiology Impressions Abdomen/Pelvis CT 03/17/21 10:41 IMPRESSION: No acute findings in the abdomen or pelvis. COMMENTS: Consistent with the [employer]'s Incidental Findings Committee white paper (J Am Eloina Radiol 2018): Any incidental renal lesion less than 1 cm or classified as too small to characterize, or any incidental cystic renal lesion characterized as simple-appearing, is likely benign. No follow-up imaging is recommended for these lesions per consensus recommendations based on imaging criteria. Laboratory Results WBC 10.4 10^3/uL (4.0-10.0) H 03/17/21 10:04 RBC 4.52 10^6/uL (4.1-5.3) 03/17/21 10:04 Hgb 14.6 g/dL (11.7-16.6) 03/17/21 10:04 Hct 43.1 % (42.0-52.0) 03/17/21 10:04 MCV 95.4 fl (80-94) H 03/17/21 10:04 MCH 32.3 pg (28.0-34.0) 03/17/21 10:04 MCHC 33.9 g/dL (30.0-36.0) 03/17/21 10:04 RDW 12.4 % (12.1-15.1) 03/17/21 10:04 Plt Count 207 10^3/cmm (130-400) 03/17/21 10:04 MPV 11.0 fL (7.4-10.4) H 03/17/21 10:04 Neut % (Auto) 63.6 % 03/17/21 10:04 Lymph % (Auto) 26.2 % 03/17/21 10:04 [place] % (Auto) 7.2 % 03/17/21 10:04 Eos % (Auto) 1.8 % 03/17/21 10:04 Baso % (Auto) 1.0 % 03/17/21 10:04 Neut # (Auto) 6.58 10^3/uL (1.8-7.7) 03/17/21 10:04 Lymph # (Auto) 2.7 10^3/uL (0.8-4.8) 03/17/21 10:04 [place] # (Auto) 0.8 10^3/uL (0.2-0.9) 03/17/21 10:04 Eos # (Auto) 0.2 10^3/uL (0.0-0.8) 03/17/21 10:04 Baso # (Auto) 0.1 10^3/uL (0.0-0.1) 03/17/21 10:04 Nucleated RBC % (auto) 0 % 03/17/21 10:04 Nucleated RBCs # 0.0 /100WBC 03/17/21 10:04 Sodium 134 mmol/L (136-145) L 03/17/21 10:04 Potassium 4.3 mmol/L (3.5-5.1) 03/17/21 10:04 Chloride 101 mmol/L (98-107) 03/17/21 10:04 Carbon Dioxide 19 mmol/L (22-29) L 03/17/21 10:04 Anion Gap 18.3 (5-19) 03/17/21 10:04 BUN 20 mg/dL (6-20) 03/17/21 10:04 Creatinine 0.7 mg/dL (0.7-1.2) 03/17/21 10:04 GFR Calculation 123.7 mL/min (90-130) 03/17/21 10:04 Glucose 103 mg/dL (65-115) 03/17/21 10:04 Calculated Osmolality 281 mOsm/kg (285-295) L 03/17/21 10:04 Calcium 9.6 mg/dL (8.5-10.5) 03/17/21 10:04 Total Bilirubin 1.0 mg/dL (0.15-1.2) 03/17/21 10:04 AST 27 U/L (0-40) 03/17/21 10:04 ALT 16 U/L (0-41) 03/17/21 10:04 Alkaline Phosphatase 68 IU/L (40-130) 03/17/21 10:04 Total Protein 6.4 g/dL (6.6-8.7) L 03/17/21 10:04 Albumin 3.9 g/dL (3.5-5.2) 03/17/21 10:04 Globulin 2.5 g/dL (1.3-4.6) 03/17/21 10:04 Lipase 17 U/L (13-60) 03/17/21 10:04 Urine Color Yellow (Yellow) 03/17/21 09:50 Urine Appearance Clear (CLEAR) 03/17/21 09:50 Urine pH 5 (5-7) 03/17/21 09:50 Ur Specific [place] 1.025 (1.005-1.030) 03/17/21 09:50 Urine Protein Neg (Negative) 03/17/21 09:50 Urine Glucose (UA) Norm (Normal) 03/17/21 09:50 Urine Ketones Negative (Negative) 03/17/21 09:50 Urine Blood Neg (Negative) 03/17/21 09:50 Urine Nitrate Negative (Negative) 03/17/21 09:50 Urine Bilirubin Neg (Negative) 03/17/21 09:50 Urine Urobilinogen Norm mg/dL (Negative) 03/17/21 09:50 Ur Leukocyte Esterase Negative (Negative) 03/17/21 09:50 Discharge Plan Discharge Patient Disposition: Home Clinical Impression: Abdominal pain Condition: Stable Prescriptions: New hydrocodone-acetaminophen 7.5-325 mg tablet 1 tab PO Q6H PRN (Reason: pain) Qty: 20 0RF ondansetron 4 mg tablet,disintegrating 4 mg PO TID PRN (Reason: nausea and vomiting) 5 Days Qty: 15 0RF No Action hydrocodone-acetaminophen 7.5-325 mg tablet 1 tab PO Q6H PRN (Reason: pain) 5 Days Qty: 20 0RF pantoprazole 40 mg tablet,delayed release (DR/EC) 40 mg PO DAILY Qty: 90 8RF Discharge Orders: Discharge ED (Routine); Ordered 03/17/21 Ordered By: Mike Quevedo Discharge Diet: Usual diet Discharge Activity: Resume usual activity Patient Instructions: Abdominal Pain (ED), Opioid Safety Activity Restrictions/Additional Instructions: Thank you for visiting the emergency department. You were seen and evaluated for abdominal pain. The exact cause of your abdominal pain is unclear. There is no indication for hospitalization or transfer at this time. Please continue previously recommended therapies. Please continue to follow the recommendation regarding further evaluation. Please return to the emergency department for uncontrolled symptoms, inability to tolerate p.o. intake, or anything else that you are concerned about and feel needs emergency department evaluation. Coding Level of Care Code ED Actuarial Analyst for [facility] Exam Comprehensive
[2021-03-17] MEDS: sodium chloride 0.9% 1,000 ML 999 ML IV (09:58)
[2021-03-17] MEDS: morphine 4 mg/mL SDV 1 mL IVP ×2 (09:58→12:51)
[2021-03-17 09:59] LABS: Add Urine Microscopic? NO; Charge for UA Resulting for Rev
[2021-03-17 10:02] LABS: Bilirubin Urine Neg (Negative); Blood Urine Neg (Negative); Glucose Urine UA Norm (Normal); Ketones Urine Negative (Negative); Leukocyte Esterase Urine Negative (Negative); Nitrate Urine Negative (Negative); Protein Urine Neg (Negative); Specific Gravity, Urine 1.025 (1.005-1.030); Urine Appearance Clear (CLEAR); Urine Color Yellow (Yellow); Urobilinogen Urine Norm (Negative); pH Urine 5 (5-7)
[2021-03-17 10:10] LABS: Basophils # 0.1 10^3/uL (0.0-0.1); Eosinophils # 0.2 10^3/uL (0.0-0.8); Eosinophils % 1.8 %; Hematocrit 43.1 % (42.0-52.0); Hemoglobin 14.6 g/dL (11.7-16.6); Lymphocytes # 2.7 10^3/uL (0.8-4.8); Lymphocytes % 26.2 %; Mean Corpuscular HGB Conc 33.9 g/dL (30.0-36.0); Mean Corpuscular Hemoglobin 32.3 pg (28.0-34.0); Mean Corpuscular Volume 95.4 fl (80-94); Monocytes # 0.8 10^3/uL (0.2-0.9); Monocytes % 7.2 %; Neutrophils # 6.58 10^3/uL (1.8-7.7); Neutrophils % 63.6 %; Nucleated Red Blood Cells % 0 %; Platelet Count 207 10^3/cmm (130-400); Red Blood Count 4.52 10^6/uL (4.1-5.3); Red Cell Distribution Width 12.4 % (12.1-15.1); White Blood Count 10.4 10^3/uL (4.0-10.0)
[2021-03-17 10:38] LABS: Alanine Aminotransferase 16 U/L (0-41); Albumin Level 3.9 g/dL (3.5-5.2); Alkaline Phosphatase 68 IU/L (40-130); Anion Gap 18.3 (5-19); Blood Urea Nitrogen 20 mg/dL (6-20); Calcium 9.6 mg/dL (8.5-10.5); Carbon Dioxide 19 mmol/L (22-29); Chloride 101 mmol/L (98-107); Creatinine Clr Calc Pharmacy 152.3472; Globulin 2.5 g/dL (1.3-4.6); Glomerular Filtration Rate 123.7 mL/min (90-130); Glucose 103 mg/dL (65-115); Lipase 17 U/L (13-60); Osmolality Calculated 281 mOsm/kg (285-295); Potassium 4.3 mmol/L (3.5-5.1); Sodium 134 mmol/L (136-145); Total Protein 6.4 g/dL (6.6-8.7)
[2021-03-17 10:39] LABS: Aspartate Amino Transferase 27 U/L (0-40)
--- NOTE | 2021-03-17 10:41 | CTR_ITS ---
PROCEDURE INFORMATION: Exam: CT Abdomen And Pelvis With Contrast Exam date and time: 03/17/2021 10:41 AM Age: 40 years old Clinical indication: Abdominal pain; Epigastric; Patient HX: Ruq pain x months; Additional info: R sided abdominal pain TECHNIQUE: Imaging protocol: Computed tomography of the abdomen and pelvis with contrast. Radiation optimization: All CT scans at this facility use at least one of these dose optimization techniques: automated exposure control; mA and/or kV adjustment per patient size (includes targeted exams where dose is matched to clinical indication); or iterative reconstruction. Contrast material: OMNI 300; Contrast volume: 95 ml; Contrast route: INTRAVENOUS (IV); COMPARISON: MR MRCP [id number] 02/07/2021 10:01 AM RADIATION DOSE METRICS: Total DLP (mGy-cm): 956.11 FINDINGS: Liver: Normal. No mass. Gallbladder and bile ducts: Normal. No calcified stones. No ductal dilation. Pancreas: Normal. No ductal dilation. Spleen: Normal. No splenomegaly. Adrenal glands: Normal. No mass. Kidneys and ureters: Subcentimeter low-density lesion in the left kidney likely reflects a cyst. No hydronephrosis. Stomach and bowel: Unremarkable. No obstruction. No mucosal thickening. Appendix: No evidence of appendicitis. Intraperitoneal space: Unremarkable. No free air. No significant fluid collection. Vasculature: Mild burden of atherosclerotic plaque in the abdominal aorta and branch vessels. No aneurysm. Lymph nodes: Unremarkable. No enlarged lymph nodes. Urinary bladder: Unremarkable as visualized. Reproductive: Unremarkable as visualized. Bones/joints: Unremarkable. No acute fracture. Soft tissues: Unremarkable. CT/CT abdomen pelvis w con* [id number] IMPRESSION: No acute findings in the abdomen or pelvis. COMMENTS: Consistent with the [employer]'s Incidental Findings Committee white paper (J Am Eloina Radiol 2018): Any incidental renal lesion less than 1 cm or classified as too small to characterize, or any incidental cystic renal lesion characterized as simple-appearing, is likely benign. No follow-up imaging is recommended for these lesions per consensus recommendations based on imaging criteria.
[2021-03-17] MEDS: iohexol 300 mg/mL 100 mL Btl IV (11:08)
[2021-03-17] MEDS: ketorolac 30 mg/mL INJ 15 MG IVP (11:51)
[2021-03-17] MEDS: ondansetron 2 mg/ML SDV 2 mL 4 MG IVP (11:51)
[2021-03-17] MEDS: acetaminophen 500 mg Tablet 1000 MG PO (11:51)
[2021-03-17] MEDS: dicyclomine 10 mg Capsule PO (11:51)
== END 2021-03-17 13:53 | disposition home or self-care (01) ==
PROVIDERS: Nurse Practitioner Family; Emergency Provider Emergency Medicine
DX: R10.9 Unspecified abdominal pain (principal); F17.210 Nicotine dependence, cigarettes, uncomplicated
CPT/HCPCS: 74177; 80053; 81003; 83690; 85025; 96361; 96374; 96375; 99284; J1885; J2270; J2405; J7030; Q9967